=== PATIENT | male | born 1945 | race Native Hawaiian/Other Pacific Islander ===

== ENCOUNTER 2019-04-11 08:04 | Outpatient (CLI) | payer OTHER, MEDICARE | END 2019-04-11 23:33 | disposition home or self-care (01) | LOC: NM 08:04 | DX: R06.02 Shortness of breath (principal) | CPT/HCPCS: A9500; J2785 ==

== ENCOUNTER 2022-05-22 09:35 | Outpatient (CLI) | payer OTHER, MEDICARE | END 2022-05-22 20:27 | disposition home or self-care (01) | LOC: RAD 09:35 | PROVIDERS: ATTEND Internal Medicine | DX: R13.19 Other dysphagia (principal) ==